=== PATIENT | male | born 1965 | race Caucasian/White ===

== ENCOUNTER 2017-05-06 15:13 | Emergency (ER) | payer SELFPAY ==
[~2017-05-06] VITALS: Ht 177.8 cm; Wt 83.0 kg
[2017-05-06] MEDS ORDERED: QBRELIS1 MG/1 ML PO (15:33)
[2017-05-06] MEDS ORDERED: CEPHALEXIN500 M1 PO (17:06)
[2017-05-06] MEDS ORDERED: LISINOPRIL20 MG PO (17:06)
== END 2017-05-06 17:09 | disposition home or self-care (01) ==
LOC: ED 15:13
DX: Z23 Encounter for immunization (principal); Z76.0 Encounter for issue of repeat prescription; F17.200 Nicotine dependence, unspecified, uncomplicated

== ENCOUNTER 2017-10-09 02:55 | Inpatient (IN) | payer SELFPAY ==
[~2017-10-09] VITALS: Ht 182.9 cm; Wt 91.7 kg
[~2017-10-09 02:55] MED LIST: CEPHALEXIN500 M1 PO; LISINOPRIL20 MG PO; QBRELIS1 MG/1 ML PO
[2017-10-09 03:00] VITALS: BP 171/90
[2017-10-09 03:14] LABS: BASO # 0.1 10*3/uL (0.0-0.1); BASO % 0.4 % (0.0-1.0); HEMATOCRIT 43.4 % (42.0-52.0); HEMOGLOBIN 15.1 g/dl (14.0-18.0); LYMPH # 1.7 10*3/uL (1.3-4.4); LYMPH % 10.8 % (27.0-41.0); MEAN CELL VOLUME 85.6 fl (80.0-94.0); MEAN CORPUSCULAR HGB 29.8 pg (27.0-31.0); MEAN CORPUSCULAR HGB CONC 34.8 g/dl (33.0-37.0); MEAN PLATELET VOLUME 11.6 fl (9.6-12.3); MONO # 0.8 10*3/uL (0.1-1.0); MONO % 5.1 % (3.0-9.0); NEUT # 12.9 10*3/uL (2.3-7.9); PLATELET COUNT AUTOMATED 154 10*3/uL (130-400); RED BLOOD COUNT 5.07 10*6/uL (4.50-5.90); RED CELL DISTRI WIDTH 12.9 % (0-14.5); WHITE BLOOD COUNT 15.6 10*3/uL (4.8-10.8)
[2017-10-09 03:35] LABS: ALBUMIN 3.7 gm/dl (3.1-4.5); ALKALINE PHOSPHATASE 81 U/L (45-117); BUN 16 mg/dl (7-24); CHLORIDE 103 mmol/L (98-107); CREATININE 1.24 mg/dL (0.70-1.30); POTASSIUM 3.8 mmol/L (3.5-5.1); SGOT/AST 15 IU/L (3-35); SGPT/ALT 32 U/L (12-78); SODIUM 139 mmol/L (136-145); TOTAL PROTEIN 7.5 gm/dL (6.4-8.2); TROPONIN I < 0.015 ng/ml (<0.045)
--- NOTE | 2017-10-09 04:44 | NUR ---
PATIENT REPORTS NO CHANGE IN DIZZINESS/ HEADACHE
[2017-10-09 06:07] VITALS: BP 136/64
--- NOTE | 2017-10-09 06:07 | NUR ---
Time: 606 A 52 year old MALE admitted to 5E under services of MACK JACOBSEN DO. Pt. arrived via ambulance from ER. Chief complaint: FLU S/S, H/A. NIMA GRUBER
[2017-10-09 08:00] VITALS: BP 138/62
--- NOTE | 2017-10-09 10:24 | NUR ---
PATIENT RESTING IN BED IS EXPERIENCING DRY HEAVES AT THIS TIME COMPLAINING OF HEADACHE AND SLIGHT DIZZINESS SEE SHIFT ASSESSMENT
[2017-10-09 12:00] VITALS: BP 136/64
[2017-10-09 16:00] VITALS: BP 138/73
[2017-10-09 20:00] VITALS: BP 167/77
--- NOTE | 2017-10-09 21:36 | NUR ---
MEDICATED WITH PRN TYLENOL ORDERD FOR C/O A HEADACHE
--- NOTE | 2017-10-09 22:45 | NUR ---
EARLIER TYLENOL EFFECTIVE PER PATIENT
[2017-10-10] VITALS: BP 166/66
--- NOTE | 2017-10-10 01:49 | NUR ---
SLEEPING, NO SXS OF DISTRESS. FLUIDS MAINTAINED.
[2017-10-10 07:38] LABS: BASO % 0.1 % (0.0-1.0); HEMATOCRIT 42.6 % (42.0-52.0); HEMOGLOBIN 14.6 g/dl (14.0-18.0); LYMPH # 1.3 10*3/uL (1.3-4.4); LYMPH % 9.4 % (27.0-41.0); MEAN CORPUSCULAR HGB 29.1 pg (27.0-31.0); MEAN CORPUSCULAR HGB CONC 34.3 g/dl (33.0-37.0); MEAN PLATELET VOLUME 12.5 fl (9.6-12.3); MONO # 0.5 10*3/uL (0.1-1.0); MONO % 3.6 % (3.0-9.0); NEUT # 12.3 10*3/uL (2.3-7.9); NEUT % 86.5 % (47.0-73.0); PLATELET COUNT AUTOMATED 168 10*3/uL (130-400); RED BLOOD COUNT 5.01 10*6/uL (4.50-5.90); RED CELL DISTRI WIDTH 13.2 % (0-14.5); WHITE BLOOD COUNT 14.2 10*3/uL (4.8-10.8)
[2017-10-10 08:00] VITALS: BP 150/81
[2017-10-10 08:04] LABS: ALBUMIN 3.1 gm/dl (3.1-4.5); ALKALINE PHOSPHATASE 71 U/L (45-117); BUN 13 mg/dl (7-24); CHLORIDE 107 mmol/L (98-107); CHOLESTEROL 175 mg/dL (<200); CREATININE 0.91 mg/dL (0.70-1.30); FREE T4 1.15 ng/dl (0.76-1.46); HDL CHOLESTEROL 33 mg/dl (40-60); LDL CHOLESTEROL 117 mg/dL (9-159); POTASSIUM 4.1 mmol/L (3.5-5.1); SGOT/AST 13 IU/L (3-35); SGPT/ALT 25 U/L (12-78); SODIUM 139 mmol/L (136-145); TOTAL PROTEIN 6.9 gm/dL (6.4-8.2); TRIGLYCERIDES 125 mg/dl (<150); VLDL CHOLESTEROL 25 mg/dL (6-40)
[2017-10-10 08:09] LABS: THYROID STIM HORMONE (HS) 0.222 uIU/ml (0.358-4.75)
--- NOTE | 2017-10-10 09:00 | NUR ---
Leather Cleaner in to talk to patient. Patient states lives at home with friends. There are few steps in the home. Physician: ramirez schilling [facility]: none Patient's level of ADLs: INDEPENDENT Patient has working utilities: all working DME: none Follow-up physician's appointment after d/c: will be made by hospitalist nurse director upon discharge Does patient want to access PORTAL?: no Discharge plan discussed with patient, patient lives at home with friends, states he is independent in adls and ambulation, works and drives, patient states he will be going back home when able and denies any home needs. ISELA PALMA
[2017-10-10 12:00] VITALS: BP 153/73
[2017-10-10 16:00] VITALS: BP 143/77
[2017-10-10 20:00] VITALS: BP 165/85
[2017-10-11] VITALS: BP 149/88
--- NOTE | 2017-10-11 03:59 | NUR ---
RESTING IN BED WITH EYES CLOSED. NO SIGNS OR SYMPTOMS OF DISTRESS NOTED. AROUSES TO VERBAL STIMULI. WILL CONTINUE TO MONITOR. CALL LIGHT IN REACH.
[2017-10-11 07:33] LABS: BASO % 0.1 % (0.0-1.0); HEMATOCRIT 42.9 % (42.0-52.0); HEMOGLOBIN 14.8 g/dl (14.0-18.0); LYMPH # 2.1 10*3/uL (1.3-4.4); LYMPH % 14.8 % (27.0-41.0); MEAN CELL VOLUME 85.1 fl (80.0-94.0); MEAN CORPUSCULAR HGB 29.4 pg (27.0-31.0); MEAN CORPUSCULAR HGB CONC 34.5 g/dl (33.0-37.0); MEAN PLATELET VOLUME 12.3 fl (9.6-12.3); MONO % 6.8 % (3.0-9.0); NEUT # 11.1 10*3/uL (2.3-7.9); NEUT % 77.9 % (47.0-73.0); PLATELET COUNT AUTOMATED 163 10*3/uL (130-400); RED BLOOD COUNT 5.04 10*6/uL (4.50-5.90); WHITE BLOOD COUNT 14.3 10*3/uL (4.8-10.8)
[2017-10-11 07:57] LABS: ALBUMIN 3.2 gm/dl (3.1-4.5); BUN 18 mg/dl (7-24); CHLORIDE 106 mmol/L (98-107); CREATININE 1.04 mg/dL (0.70-1.30); POTASSIUM 4.1 mmol/L (3.5-5.1); SGOT/AST 10 IU/L (3-35); SGPT/ALT 25 U/L (12-78); SODIUM 141 mmol/L (136-145)
[2017-10-11 07:59] LABS: ALKALINE PHOSPHATASE 72 U/L (45-117); TOTAL PROTEIN 6.9 gm/dL (6.4-8.2)
[2017-10-11 08:00] VITALS: BP 138/84
--- NOTE | 2017-10-11 08:55 | NUR ---
PT REQUESTED AND WAS MEDICATED WITH TYLENOL FOR C/O HEADACHE. CALL LIGHT IN REACH. WILL MONITOR.
--- NOTE | 2017-10-11 09:00 | NUR ---
case management visits with patient, patient denies any home needs
--- NOTE | 2017-10-11 10:29 | NUR ---
PT STATES TYLENOL WAS EFFECTIVE. CALL LIGHT IN REACH. WILL MONITOR.
--- NOTE | 2017-10-11 11:38 | NUR ---
PHYSICAL THERAPY PAtient evaluated on , full evaluation to follow. PAtient with nystagmus single beat, 2-3 times occurance in 30 second interval right > left with [place]- Carlyle Humphrey testing. Tretament to the right this date, 3 times. PAtient reports mild improvement with standing and rising from seated ( which is patients main complaint). PAtient also educated to slow transitions with transfers, especially supne to stand and utilize visual fixation to help decrease vertigo when occuring with transfers, fair understanding. Continue with PT as per plan of care with fall, vertigo and acute debilty. [facility] vestibular rehab/physical therapy prn. PAtient is moderate complexity via tests, chart review and evalatuion: 99249. Thank you for this referral. Mell Whitlock,PT
[2017-10-11 12:00] VITALS: BP 156/87
--- NOTE | 2017-10-11 13:29 | NUR ---
DR MULTANI CALLED RE: MRI RESULTS.
--- NOTE | 2017-10-11 14:04 | NUR ---
PHYSICAL THERAPY Marcus seen this PM 1:1 for his therapy session. Having no vision problems, no vertigo, no vision fixation neede with his transfers and gait. All transfers were independnet. Gait total 215' X 1, with CG X 1, no LOB. Working on right and left side stepping, 360 turn, stop/start gait no LOB. Pt back supine in bed, call light phone. LORI SETHI SHANK INSPECTOR.
[2017-10-11 16:00] VITALS: BP 144/86
[2017-10-11 20:00] VITALS: BP 148/87
[2017-10-12] VITALS: BP 128/67
--- NOTE | 2017-10-12 04:05 | NUR ---
PT IS RESTING IN BED. RESPIRATIONS ARE EASY AND REGULAR. NO DISTRESS IS NOTED AT THIS TIME.
[2017-10-12 06:51] LABS: BASO % 0.2 % (0.0-1.0); EOS % 0.1 % (1.0-4.0); HEMOGLOBIN 14.8 g/dl (14.0-18.0); LYMPH # 1.5 10*3/uL (1.3-4.4); LYMPH % 16.4 % (27.0-41.0); MEAN CORPUSCULAR HGB 29.2 pg (27.0-31.0); MEAN CORPUSCULAR HGB CONC 34.4 g/dl (33.0-37.0); MONO # 0.6 10*3/uL (0.1-1.0); MONO % 5.9 % (3.0-9.0); NEUT # 7.2 10*3/uL (2.3-7.9); NEUT % 76.8 % (47.0-73.0); PLATELET COUNT AUTOMATED 151 10*3/uL (130-400); RED BLOOD COUNT 5.06 10*6/uL (4.50-5.90); RED CELL DISTRI WIDTH 12.7 % (0-14.5); WHITE BLOOD COUNT 9.3 10*3/uL (4.8-10.8)
[2017-10-12 07:30] LABS: CHLORIDE 102 mmol/L (98-107); POTASSIUM 4.4 mmol/L (3.5-5.1); SODIUM 139 mmol/L (136-145)
[2017-10-12 07:37] LABS: ALBUMIN 3.2 gm/dl (3.1-4.5); ALKALINE PHOSPHATASE 67 U/L (45-117); BUN 16 mg/dl (7-24); CREATININE 0.95 mg/dL (0.70-1.30); SGOT/AST 10 IU/L (3-35); SGPT/ALT 27 U/L (12-78); TOTAL PROTEIN 6.8 gm/dL (6.4-8.2)
[2017-10-12 08:00] VITALS: BP 131/70
--- NOTE | 2017-10-12 08:00 | NUR ---
RESTING QUIETLY IN BED, NO C/O NO DISTRESS NOTED. SEE SHIFT ASSESSMENT.
[2017-10-12 12:00] VITALS: BP 149/85
[2017-10-12 16:00] VITALS: BP 146/82
[2017-10-12 20:00] VITALS: BP 155/84
--- NOTE | 2017-10-12 20:29 | NUR ---
PT GIVEN PRN TYLENOL OPER REQUEST FOR HEADACHE. PT STATES HEADACHE IS DULL AND THROBBING. RATES IT AN 8/10. WILL EVALUATE EFFECTIVENESS.
--- NOTE | 2017-10-12 22:00 | NUR ---
PER PT PRN TYLENOL WAS EFFECTIVE AND HEADACHE HAS SUBSIDED.
[2017-10-13] VITALS: BP 147/91
[2017-10-13 06:18] LABS: BASO % 0.2 % (0.0-1.0); HEMATOCRIT 43.5 % (42.0-52.0); HEMOGLOBIN 15.1 g/dl (14.0-18.0); LYMPH # 1.9 10*3/uL (1.3-4.4); LYMPH % 15.2 % (27.0-41.0); MEAN CORPUSCULAR HGB 29.2 pg (27.0-31.0); MEAN CORPUSCULAR HGB CONC 34.7 g/dl (33.0-37.0); MEAN PLATELET VOLUME 12.4 fl (9.6-12.3); MONO # 0.7 10*3/uL (0.1-1.0); MONO % 5.9 % (3.0-9.0); NEUT # 9.7 10*3/uL (2.3-7.9); NEUT % 78.1 % (47.0-73.0); PLATELET COUNT AUTOMATED 166 10*3/uL (130-400); RED BLOOD COUNT 5.18 10*6/uL (4.50-5.90); RED CELL DISTRI WIDTH 12.6 % (0-14.5); WHITE BLOOD COUNT 12.4 10*3/uL (4.8-10.8)
[2017-10-13 06:46] LABS: BUN 18 mg/dl (7-24); CHLORIDE 102 mmol/L (98-107); CREATININE 0.98 mg/dL (0.70-1.30); POTASSIUM 4.3 mmol/L (3.5-5.1); SODIUM 138 mmol/L (136-145)
[2017-10-13 08:00] VITALS: BP 155/70
--- NOTE | 2017-10-13 08:30 | NUR ---
PT RESTING IN BED, NO DISTRESS NOTED. NO VOICED C/O. WILL MONITOR
[2017-10-13 12:00] VITALS: BP 160/82
[2017-10-13 16:00] VITALS: BP 156/80
[2017-10-13 20:00] VITALS: BP 151/101
--- NOTE | 2017-10-13 20:22 | NUR ---
PATIENT RESTING IN BED CALL LIGHT IN REACH. SEE SHIFT ASSESSMENT
[2017-10-14] VITALS: BP 124/82
[2017-10-14 04:00] VITALS: BP 122/80
[2017-10-14 07:24] LABS: BASO % 0.2 % (0.0-1.0); HEMATOCRIT 44.6 % (42.0-52.0); HEMOGLOBIN 15.6 g/dl (14.0-18.0); LYMPH # 3.3 10*3/uL (1.3-4.4); LYMPH % 26.9 % (27.0-41.0); MEAN CELL VOLUME 86.1 fl (80.0-94.0); MEAN CORPUSCULAR HGB 30.1 pg (27.0-31.0); MEAN PLATELET VOLUME 12.6 fl (9.6-12.3); NEUT # 7.8 10*3/uL (2.3-7.9); NEUT % 64.4 % (47.0-73.0); PLATELET COUNT AUTOMATED 159 10*3/uL (130-400); RED BLOOD COUNT 5.18 10*6/uL (4.50-5.90); RED CELL DISTRI WIDTH 12.9 % (0-14.5); WHITE BLOOD COUNT 12.1 10*3/uL (4.8-10.8)
--- NOTE | 2017-10-14 07:47 | NUR ---
PT RESTING IN BED. NO DISTRESS NOTED. NO VOICED C/O. CALL LIGHT WITHIN REACH. WILL MONITOR
[2017-10-14 07:53] LABS: BUN 21 mg/dl (7-24); CHLORIDE 105 mmol/L (98-107); CREATININE 1.03 mg/dL (0.70-1.30); SODIUM 141 mmol/L (136-145)
[2017-10-14 08:00] VITALS: BP 127/84
--- NOTE | 2017-10-14 11:09 | NUR ---
PHYSICAL THERAPY Patient performed gait for 300' x 1 with no assistive device walking along side of herring with handrails close in case he would need them. Patient had no LOB or other difficulty while ambulating. WINSOME COLBY PATTERNMAKER ALL AROUND
[2017-10-14 12:00] VITALS: BP 149/92
--- NOTE | 2017-10-14 13:33 | NUR ---
case management spoke to Carissa from [employer], she stated she screened patient this am and can start medicaid process when patient provides her with his proof of income, Carissa will let case managment know when patient has done this and application has been filed
--- NOTE | 2017-10-14 14:34 | NUR ---
Occupational Therapy evaluation completed this date on 5 with full eval to follow. Precautions include acute left cerebellar infarct with high level balance deficits, low complexity level, fall risk, independent in ADLs and functional mobility, WNL BUE strength. Recommend no further OT at this time, patient to be d/michael home with friend upon d/c. Thank you for this referral. Elissa Willis OTR/L
[2017-10-14] MEDS ORDERED: GLUCOPHAGE500 MG PO (15:45)
[2017-10-14] MEDS ORDERED: LISINOPRIL20 MG PO (15:45)
[2017-10-14] MEDS ORDERED: MECLIZINE HCL25 M2 PO (15:45)
[2017-10-14] MEDS ORDERED: ASPIRIN ADULT L81 M1 PO (15:45)
[2017-10-14] MEDS ORDERED: ATORVASTATIN CA20 M1 PO (15:45)
--- NOTE | 2017-10-14 15:52 | NUR ---
HAD DISCUSSION WITH PATIENT AND LET HIM KNOW THAT THE [facility] HAD STATED THAT THEY WOULD COVER HIS PHYSICAL THERAPY AT EITHER THE [facility] OR WITH [facility]. HE DOES HAVE TRANSPORTATION TO THE THERAPY CENTER ADN WOULD BENEFIT MORE FROM THE INTENSIVE THERAPY AT OUTPATIENT CENTER. HE WILL FOLLOW WITH THEM, ALSO, RX'S SENT TO [facility] FOR HIS DISCHARGE MEDS AND APPOINTMENT MADE WITH [facility].
[2017-10-14 16:00] VITALS: BP 148/91
--- NOTE | 2017-10-14 19:00 | NUR ---
Discharge instructions reviewed with patient/family. Patient receptive and verbalizes understanding. Follow-up care arranged. Written instructions given to patient/family. DARRON AMBROSIO
--- NOTE | 2017-10-16 13:42 | NUR ---
PHYSICAL THERAPY CO-SIGN I approve of the Phyical Therapy notes written above. ALINA TO
== END 2017-10-14 19:00 | disposition home or self-care (01) | DRG 66 ==
LOC: ED 02:55 → 5E 05:51 → EDHOLD 05:51 → 5E 05:59
PROVIDERS: Emergency Medicine; Family Medicine; ADMIT Internal Medicine
DX: I63.9 Cerebral infarction, unspecified (principal); D72.829 Elevated white blood cell count, unspecified; I10 Essential (primary) hypertension; R73.9 Hyperglycemia, unspecified; Z72.0 Tobacco use; Z79.899 Other long term (current) drug therapy

== ENCOUNTER 2023-04-09 06:11 | Emergency (ER) | payer BC ==
[~2023-04-09] VITALS: Ht 180.3 cm; Wt 78.9 kg
[~2023-04-09 06:11] MED LIST changes: +ASPIRIN ADULT L81 M1 PO; +ATORVASTATIN CA20 M1 PO; +GLUCOPHAGE500 MG PO; +MECLIZINE HCL25 M2 PO
[2023-04-09] MEDS ORDERED: LISINOPRIL20 MG PO (06:50)
[2023-04-09] MEDS ORDERED: TRAMADOL HCL50 MG PO (06:50)
== END 2023-04-09 10:40 | disposition home or self-care (01) ==
LOC: ED 06:11
DX: I10 Essential (primary) hypertension (principal); M16.12 Unilateral primary osteoarthritis, left hip; M19.072 Primary osteoarthritis, left ankle and foot; E78.5 Hyperlipidemia, unspecified; Z79.899 Other long term (current) drug therapy; Z79.82 Long term (current) use of aspirin

== ENCOUNTER 2023-04-11 07:46 | Inpatient (IN) | payer BC ==
[~2023-04-11] VITALS: Ht 182.8 cm; Wt 79.4 kg
[~2023-04-11 07:46] MED LIST changes: +TRAMADOL HCL50 MG PO
[2023-04-11 08:05] VITALS: BP 186/96
[2023-04-11 08:21] LABS: BASO % 0.5 % (0.0-1.0); HEMATOCRIT 44.7 % (42.0-52.0); LYMPH # 1.7 10*3/uL (1.3-4.4); LYMPH % 22.9 % (27.0-41.0); MEAN CELL VOLUME 88.7 fl (80.0-94.0); MEAN CORPUSCULAR HGB CONC 33.8 g/dl (33.0-37.0); MONO # 0.7 10*3/uL (0.1-1.0); MONO % 9.4 % (3.0-9.0); NEUT # 5.1 10*3/uL (2.3-7.9); NEUT % 66.9 % (47.0-73.0); PLATELET COUNT AUTOMATED 168 10*3/uL (130-400); RED BLOOD COUNT 5.04 10*6/uL (4.50-5.90); RED CELL DISTRI WIDTH 12.2 % (0-14.5); WHITE BLOOD COUNT 7.6 10*3/uL (4.8-10.8)
[2023-04-11 08:32] LABS: ACT PARTIAL THROMBO TIME 25.6 SECONDS (20.0-32.1)
[2023-04-11 08:44] LABS: ALKALINE PHOSPHATASE 94 U/L (46-116); BUN 12 mg/dl (9-23); CHLORIDE 106 mmol/L (98-107); LIPASE 49 U/L (12-53); POTASSIUM 4.3 mmol/L (3.4-5.1); SGPT/ALT 23 U/L (10-49); TOTAL PROTEIN 7.5 gm/dL (6.0-8.0)
[2023-04-11 13:21] VITALS: BP 130/58; BP 150/86
[2023-04-11] MEDS ORDERED: ATORVASTATIN CA80 M1 PO (16:38)
[2023-04-11] MEDS ORDERED: Clopidogrel75 MG PO (16:38)
[2023-04-11] MEDS ORDERED: ASPIRIN ADULT L81 M1 PO (16:38)
== END 2023-04-11 16:48 | disposition home or self-care (01) | DRG 65 ==
LOC: ED 07:46 → EDHOLD 16:13
PROVIDERS: Emergency Medicine; ADMIT Internal Medicine; ATTEND Internal Medicine
DX: I63.9 Cerebral infarction, unspecified (principal); I16.1 Hypertensive emergency; I10 Essential (primary) hypertension; F17.200 Nicotine dependence, unspecified, uncomplicated; E55.9 Vitamin D deficiency, unspecified; E11.65 Type 2 diabetes mellitus with hyperglycemia; F17.210 Nicotine dependence, cigarettes, uncomplicated; Z79.82 Long term (current) use of aspirin; Z79.899 Other long term (current) drug therapy

== ENCOUNTER 2023-04-17 11:49 | Emergency (ER) | payer BC ==
[~2023-04-17] VITALS: Wt 79.4 kg
[~2023-04-17 11:49] MED LIST changes: +ATORVASTATIN CA80 M1 PO; +Clopidogrel75 MG PO
[2023-04-17 12:45] LABS: BASO % 0.4 % (0.0-1.0); HEMATOCRIT 40.7 % (42.0-52.0); LYMPH # 1.7 10*3/uL (1.3-4.4); LYMPH % 19.7 % (27.0-41.0); MEAN CELL VOLUME 87.5 fl (80.0-94.0); MEAN CORPUSCULAR HGB 30.3 pg (27.0-31.0); MEAN CORPUSCULAR HGB CONC 34.6 g/dl (33.0-37.0); MEAN PLATELET VOLUME 12.2 fl (9.6-12.3); MONO # 0.8 10*3/uL (0.1-1.0); MONO % 9.1 % (3.0-9.0); NEUT % 70.4 % (47.0-73.0); PLATELET COUNT AUTOMATED 167 10*3/uL (130-400); RED BLOOD COUNT 4.65 10*6/uL (4.50-5.90); RED CELL DISTRI WIDTH 12.1 % (0-14.5); WHITE BLOOD COUNT 8.5 10*3/uL (4.8-10.8)
[2023-04-17 13:00] LABS: ACT PARTIAL THROMBO TIME 25.4 SECONDS (20.0-32.1)
[2023-04-17 13:13] LABS: ALKALINE PHOSPHATASE 90 U/L (46-116); BUN 12 mg/dl (9-23); CHLORIDE 106 mmol/L (98-107); POTASSIUM 4.3 mmol/L (3.4-5.1); SGPT/ALT 19 U/L (10-49); TOTAL PROTEIN 6.5 gm/dL (6.0-8.0)
[2023-04-17] MEDS ORDERED: VIBRA-TAB100 MG PO (13:34)
== END 2023-04-17 13:49 | disposition home or self-care (01) ==
LOC: ED 11:49
PROVIDERS: Emergency Medicine
DX: L03.116 Cellulitis of left lower limb (principal); I10 Essential (primary) hypertension; Z86.73 Personal history of transient ischemic attack (TIA), and cerebral infarction without residual deficits

== ENCOUNTER 2025-05-09 12:06 | Emergency (ER) | payer SELFPAY ==
[~2025-05-09] VITALS: Ht 182.8 cm; Wt 79.4 kg
[~2025-05-09 12:06] MED LIST changes: +VIBRA-TAB100 MG PO
[2025-05-09] MEDS ORDERED: SODIUM CHLORIDE 0.9% 1,000 ML IV ONE (13:00)
[2025-05-09 13:36] LABS: BILIRUBIN Negative (Negative); BLOOD Negative (Negative); CLARITY Clear (Clear); COLOR Yellow (Yellow); KETONE Negative (Negative); LEUKO ESTERASE Negative (Negative); NITRITE Negative (Negative); PH 6.0 (4.5-8.0); SPECIFIC GRAVITY >= 1.030 (1.001-1.030); UROBILINOGEN 0.2 E.U./dl (0.0-1.0)
[2025-05-09 13:42] LABS: BASO # 0.0 10*3/uL (0.0-0.1); BASO % 0.5 % (0.0-1.0); EOS # 0.0 10*3/uL (0.0-0.4); EOS % 0.0 % (1.0-4.0); MEAN CELL VOLUME 84.8 fl (80.0-94.0); MEAN CORPUSCULAR HGB 28.7 pg (27.0-31.0); MEAN PLATELET VOLUME 12.3 fl (9.6-12.3); MONO # 0.6 10*3/uL (0.1-1.0); MONO % 7.0 % (3.0-9.0); NEUT # 6.7 10*3/uL (2.3-7.9); NEUT % 77.2 % (47.0-73.0); NUCLEATED RED BLOOD CELL 0.0 % (0.0-0.0); NUCLEATED RED BLOOD CELL 0.0 10*3/uL (0.0-0.0); PLATELET COUNT AUTOMATED 203 10*3/uL (130-400); RED CELL DISTRI WIDTH 12.6 % (0-14.5)
[2025-05-09 13:44] LABS: RBC 0-2 rbc/hpf (0-2)
[2025-05-09 13:45] LABS: BACTERIA 1+; WBC 0-2 wbc/hpf (0-5)
[2025-05-09 14:10] LABS: BUN 24.0 mg/dl (9-23)
[2025-05-09] MEDS ORDERED: INSULIN REGULAR, HUMAN 15 UNIT IV ONE (14:55)
[2025-05-09] MEDS ORDERED: INSULIN REGULAR, HUMAN 1 UNIT/0.01 ML IV ONE (15:00)
[2025-05-09] MEDS ORDERED: CIPRO500 MG PO (15:08)
== END 2025-05-09 15:16 | disposition home or self-care (01) ==
LOC: ED 12:06
PROVIDERS: Internal Medicine
DX: N39.0 Urinary tract infection, site not specified (principal); E11.65 Type 2 diabetes mellitus with hyperglycemia; N20.0 Calculus of kidney; R42 Dizziness and giddiness; Z79.82 Long term (current) use of aspirin; Z79.899 Other long term (current) drug therapy